=== PATIENT | female | born 1980 | race Caucasian/White ===

== ENCOUNTER 2022-10-11 14:11 | Emergency (ER) | payer SELFPAY ==
[~2022-10-11] VITALS: Ht 165.1 cm; Wt 62.6 kg
--- NOTE | 2022-10-11 14:19 | NUR ---
PT IS IN ROOM #2B. DR HUMPHRIES EVALUATED THE PT.
[2022-10-11 15:12] LABS: HEMATOCRIT 36.4 % (31.2-41.9); MEAN CORPUSCULAR VOLUME 61.6 fL (75.5-95.3); PLATELET COUNT (AUTO) 266 K/uL (179-408)
[2022-10-11 15:31] LABS: CREATININE 0.7 mg/dL (0.6-1.3); POTASSIUM 3.9 mmol/L (3.5-5.1)
[2022-10-11 15:37] LABS: BILIRUBIN,DIRECT 0.1 mg/dL (0.0-0.2); BILIRUBIN,TOTAL 0.5 mg/dL (0.2-1.0); TOTAL PROTEIN, SERUM 7.4 g/dL (6.4-8.2)
[2022-10-11 16:44] LABS: *URINE HCG, QUAL POSITIVE (NEGATIVE)
--- NOTE | 2022-10-11 18:46 | NUR ---
PT WAS D/C'd TO HOME. D/C INSTRUCTIONS GIVEN TO THE PT BY DR HUMPHRIES.
[2022-10-11 18:47] VITALS: BP 131/66
== END 2022-10-11 18:48 | disposition home or self-care (01) ==
LOC: ER 14:11
DX: O20.8 Other hemorrhage in early pregnancy (principal); R10.2 Pelvic and perineal pain; Z3A.00 Weeks of gestation of pregnancy not specified
CPT/HCPCS: 36415; 76856; 84703; 85025; 86900; 86901; A4663

== ENCOUNTER 2022-10-13 18:48 | Emergency (ER) | payer SELFPAY ==
[~2022-10-13] VITALS: Ht 165.1 cm; Wt 62.6 kg
--- NOTE | 2022-10-13 19:10 | NUR ---
REPORT RECEIVED FROM BRAYDON WALSH MD AT BEDSIDE FOR EVAL.
--- NOTE | 2022-10-13 19:30 | NUR ---
PT A,A AND O X 4 WITH NO ABD PAIN, NO N/V. LAB AT BEDSIDE DRAWING BLOOD.
--- NOTE | 2022-10-13 21:50 | NUR ---
PT A,A AND O X4 WITH NO C/O PAIN AND NO VAGINAL BLEEDING. Patient discharged to home in stable condition. Written and verbal after care instructions given. Patient verbalizes understanding of instructions. Stressed follow up or return to ER for worsening s/s. PT AMB OUT WITH STEADY GAIT AND S.O.
[2022-10-14 04:15] VITALS: BP 107/61
== END 2022-10-13 21:50 | disposition home or self-care (01) ==
LOC: ER 18:48
DX: O20.0 Threatened abortion (principal); Z3A.00 Weeks of gestation of pregnancy not specified
CPT/HCPCS: 36415; A4663

== ENCOUNTER → 2022-11-16 | Emergency (ER) | payer SELFPAY ==
[~2022-11-16] VITALS: Ht 165.1 cm; Wt 62.6 kg
--- NOTE | 2022-11-16 17:30 | NUR ---
Pt declined EKG.
[2022-11-16 17:44] LABS: HEMATOCRIT 36.5 % (31.2-41.9); MEAN CORPUSCULAR HEMOGLOBIN 19.2 uug (24.7-32.8); MEAN CORPUSCULAR VOLUME 61.4 fL (75.5-95.3); PLATELET COUNT (AUTO) 236 K/uL (179-408)
--- NOTE | 2022-11-16 17:44 | NUR ---
Urine collected and sent to LAB.
[2022-11-16 17:48] LABS: *BILIRUBIN,URIN NEGATIVE (NEGATIVE); *BLOOD, URINE NEGATIVE (NEGATIVE); *CLARITY,URINE CLEAR (CLEAR); *COLOR,URINE YELLOW (YELLOW); *KETONES,URINE NEGATIVE (NEGATIVE); *UROBILINOGEN,URINE 0.2 E.U./dl (NORMAL); LEUKOCYTE ESTERASE ,URINE NEGATIVE (NEGATIVE); NITRITE, URINE NEGATIVE (NEGATIVE); UGLUCOSE NEGATIVE (NEGATIVE)
[2022-11-16 18:07] LABS: BILIRUBIN,TOTAL 0.6 mg/dL (0.2-1.0); CREATININE 0.7 mg/dL (0.6-1.3); POTASSIUM 4.1 mmol/L (3.5-5.1); TOTAL PROTEIN, SERUM 7.3 g/dL (6.4-8.2)
[2022-11-16 18:08] LABS: NEUTROPHILS % (MANUAL) 0 % (42-75)
[2022-11-16 19:28] VITALS: BP 120/70
--- NOTE | 2022-11-16 19:28 | NUR ---
Patient discharged to home in stable condition. Written and verbal after care instructions given. Patient verbalizes understanding of instructions. Stressed follow up or return to ER for worsening s/s.
== END | disposition home or self-care (01) ==
LOC: ER 16:39
DX: R10.2 Pelvic and perineal pain (principal)
CPT/HCPCS: 36415; 70030-TC; 76857; 84484; 85025; 93005; A4663